=== PATIENT | female | born 1970 | race Caucasian/White ===

== ENCOUNTER → 2017-11-26 | Outpatient (CLI) | payer OTHER | LOC: M WHC 14:23 | DX: Z12.31 Encounter for screening mammogram for malignant neoplasm of breast (principal) | CPT/HCPCS: 77067 ==

== ENCOUNTER → 2018-12-04 | Outpatient (CLI) | payer OTHER ==
[~2018-12-04] MED LIST: CITRACEL PO; CITRTAB15 PO
--- NOTE | 2018-12-04 12:28 | REPMRS ---
Patient History The patient states she has not had a clinical breast exam in over a year. Patient is postmenopausal and is nulliparous. Family history of colorectal cancer at age 50 or over in paternal grandfather. Digital Woman Screen Mammo: December 04, 2018 - Exam #: [id number] Bilateral CC and MLO view(s) were taken. Technologist: Argenis Trinidad, Technologist Prior study comparison: November 26, 2017, digital woman screen mammo performed at [facility]. September 20, 2016, digital woman screen mammo performed at [facility]. FINDINGS: The breast tissue is heterogeneously dense. This may lower the sensitivity of mammography. There has been no change in the appearance of the mammogram from the prior studies. There is a moderate amount of residual fibroglandular tissue which is fairly symmetric. There is no interval development of dominant mass, architectural distortion, or clustered microcalcification typical of malignancy. No significant changes when compared with prior studies. Assessment: BI-RADS/ACR category 2 mammogram. Benign Findings. Recommendation Routine screening mammogram in 1 year (for women over age 40). This mammogram was interpreted with the aid of an FDA-approved computer-aided dectection system. A. Negative x-ray reports should not delay biopsy if a dominant or clinically suspicious mass is present. B. Four to eight percent of cancers are not identified by mammography. C. Adenosis and dense breast may obscure an underlying neoplasm. Electronically Signed By: Jensen Pisano MD 12/04/18 [id number]
== END ==
LOC: M WHC 08:54
PROVIDERS: ATTEND Family Medicine
DX: Z12.31 Encounter for screening mammogram for malignant neoplasm of breast (principal); Z78.0 Asymptomatic menopausal state

== ENCOUNTER → 2020-04-05 | Outpatient (CLI) | payer OTHER ==
--- NOTE | 2020-04-05 13:39 | REPMRS ---
Patient History The patient states she has not had a clinical breast exam in over a year. Family history of colorectal cancer at age 50 or over in paternal grandfather. 3D TOMOSYNTHESIS WAS PERFORMED. The Zane Ortiz lifetime risk for breast cancer is 12.5%. YOVANI SALMERON Peri. Digital Woman Screen Mammo: April 05, 2020 - Exam #: [id number] Bilateral CC and MLO view(s) were taken. Technologist: Frances Hubbard, Technologist Prior study comparison: December 04, 2018, bilateral digital woman screen mammo performed at [facility]. November 26, 2017, digital woman screen mammo performed at [facility]. FINDINGS: The breast tissue is heterogeneously dense. This may lower the sensitivity of mammography. There has been no change in the appearance of the mammogram from the prior studies. There is a moderate amount of residual fibroglandular tissue which is fairly symmetric. There is no interval development of dominant mass, areas of architectural distortion, or clustered microcalcification typical of malignancy. Assessment: BI-RADS/ACR category 1 mammogram. Negative Mammogram. Recommendation Routine screening mammogram in 1 year (for women over age 40). This mammogram was interpreted with the aid of an FDA-approved computer-aided dectection system. Electronically Signed By: Waqar Le MD 04/05/20 [id number]
== END ==
LOC: M WHC 12:51
PROVIDERS: ATTEND Family Medicine
DX: Z12.31 Encounter for screening mammogram for malignant neoplasm of breast (principal)

== ENCOUNTER → 2020-11-19 | Outpatient (CLI) | payer OTHER ==
--- NOTE | 2020-11-19 13:11 | REP ---
INDICATION: LT AXILLARY LYMPHADENOPATHY. The patient reports episodes of intermittent discomfort in the left axilla. She was recently vaccinated for COVID in the left arm however these episodes of discomfort pre seeded the vaccination by several months. The requisition states left axillary lymphadenopathy but the patient cannot feel lump. COMPARISON: Comparison mammography November 26, 2017, December 04, 2018, and April 05, 2020. TECHNIQUE: Routine views of the left breast are complimented by a laterally exaggerated "Wandy" view of the left breast. 3D tomography was utilized. Targeted left axillary sonography is performed. This mammogram was interpreted with the aid of an FDA-approved computer-aided detection system. FINDINGS: Mammography images of the left breast demonstrate heterogeneously dense breast parenchyma as previously noted. Upper outer quadrant breast parenchyma is predominantly fat replaced. No mass lesion is seen. No axillary adenopathy is observed on mammographic images. No worrisome skin change or microcalcification is seen. No evidence of architectural distortion. The Volpara volumetric breast density pattern is C. Targeted ultrasound: Targeted left axillary sonography is carried out. Multiple lymph nodes are seen each of which has a preserved hyperechoic hilar fatty architecture. The largest measures 2.5 x 0.8 x 1.6 cm. These are not felt to be suspicious by ultrasound criteria. IMPRESSION: BIRADS/ACR category 2 benign left breast mammographic and sonographic findings. Normal appearing lymph nodes visible in the left axilla. No mass lesion seen. This patient's Tyrer-Cuzick lifetime breast cancer risk assessment score is 12.3%. RECOMMENDATION: Repeat screening mammography recommended 1 year (for women over 40). Clinical follow-up is advised regarding patient's breast symptoms. The patient letter being requested is M2 dense. <Electronically signed by Jeremy Calderon > 11/19/20 [id number]
== END ==
LOC: M WHC 08:48
PROVIDERS: ATTEND Family Medicine
DX: Z12.31 Encounter for screening mammogram for malignant neoplasm of breast (principal); R59.0 Localized enlarged lymph nodes
CPT/HCPCS: 76882; 77065; G0279

== ENCOUNTER → 2021-12-15 | Outpatient (CLI) | payer OTHER | LOC: M WHC 08:56 | PROVIDERS: ATTEND Family Medicine | DX: Z12.31 Encounter for screening mammogram for malignant neoplasm of breast (principal) ==

== ENCOUNTER → 2022-01-12 | Outpatient (CLI) | payer OTHER | LOC: M WHC 14:57 | PROVIDERS: ATTEND Family Medicine | DX: Z12.31 Encounter for screening mammogram for malignant neoplasm of breast (principal) ==